=== PATIENT | female | born 2000 | race Caucasian/White ===

== ENCOUNTER → 2022-05-27 | Outpatient (CLI) | payer OTHER ==
[~2022-05-27] VITALS: Ht 162.6 cm; Wt 95.3 kg
[~2022-05-27] MED LIST: PRENATAL + DHA1 EAC1 PO
== END | disposition home or self-care (01) ==
LOC: OBS/DEL 18:38 → LDR 05-29 09:11
PROVIDERS: ATTEND Obstetrics & Gynecology Obstetrics
DX: O26.892 Other specified pregnancy related conditions, second trimester (principal); R10.2 Pelvic and perineal pain; Z3A.24 24 weeks gestation of pregnancy; Z20.822 Contact with and (suspected) exposure to COVID-19; Z91.013 Allergy to seafood

== ENCOUNTER 2022-07-14 22:10 | Inpatient (IN) | payer OTHER ==
[~2022-07-14] VITALS: Ht 165.1 cm; Wt 98.9 kg
[2022-07-15] MEDS ORDERED: IRON325 MG PO (15:18)
== END 2022-07-16 18:32 | disposition home or self-care (01) | DRG 833 ==
LOC: OBS/DEL 22:10 → LDR 07-15 15:22
PROVIDERS: ADMIT Obstetrics & Gynecology Obstetrics; ATTEND Obstetrics & Gynecology Obstetrics
PROC: 4A1HXCZ Monitoring of Products of Conception, Cardiac Rate, External Approach (ICD-10-PCS; principal; 2022-07-15)
PROC: BY4DZZZ Ultrasonography of Second Trimester, Multiple Gestation (ICD-10-PCS; 2022-07-15)
DX: O23.43 Unspecified infection of urinary tract in pregnancy, third trimester (principal); O30.003 Twin pregnancy, unspecified number of placenta and unspecified number of amniotic sacs, third trimester; Z3A.31 31 weeks gestation of pregnancy; Z20.822 Contact with and (suspected) exposure to COVID-19

== ENCOUNTER 2022-08-14 04:21 | Inpatient (IN) | payer OTHER ==
[~2022-08-14] VITALS: Ht 165.1 cm; Wt 2.3 kg
[~2022-08-14 04:21] MED LIST changes: +IRON325 MG PO
== END 2022-08-19 13:42 | disposition home or self-care (01) | DRG 786 ==
LOC: LDR 04:21 → O/R 08-16 18:44 → OB/GYN 08-16 21:08
PROVIDERS: ADMIT Obstetrics & Gynecology Obstetrics; ATTEND Obstetrics & Gynecology Obstetrics
PROC: 4A1HXCZ Monitoring of Products of Conception, Cardiac Rate, External Approach (ICD-10-PCS; 2022-08-14)
PROC: BY4GZZZ Ultrasonography of Third Trimester, Multiple Gestation (ICD-10-PCS; 2022-08-14)
PROC: BU4CZZZ Ultrasonography of Uterus and Ovaries (ICD-10-PCS; 2022-08-14)
PROC: 10D00Z1 Extraction of Products of Conception, Low, Open Approach (ICD-10-PCS; principal; 2022-08-16 18:00)
DX: O35.3XX2 Maternal care for (suspected) damage to fetus from viral disease in mother, fetus 2 (principal); O60.14X2 Preterm labor third trimester with preterm delivery third trimester, fetus 2; O36.8130 Decreased fetal movements, third trimester, not applicable or unspecified; O30.043 Twin pregnancy, dichorionic/diamniotic, third trimester; Z3A.35 35 weeks gestation of pregnancy; Z37.2 Twins, both liveborn